=== PATIENT | male | born 1945 | race Two or more races ===

== ENCOUNTER 2021-01-19 12:34 | Emergency (ER) | payer OTHER ==
[~2021-01-19] VITALS: Ht 175.3 cm; Wt 97.5 kg
[2021-01-19] MEDS ORDERED: DIOVAN160 M1 PO (12:48)
[2021-01-19] MEDS ORDERED: PRAVASTATIN SOD40 MG PO (12:48)
[2021-01-19] MEDS ORDERED: NORVASC10 MG PO (12:49)
== END 2021-01-19 20:24 | disposition home or self-care (01) ==
LOC: ER 12:34 → EDBD 12:41 → CPU-OBS 12:41 → ER 12:41
DX: I16.1 Hypertensive emergency (principal); I10 Essential (primary) hypertension; E78.5 Hyperlipidemia, unspecified; R42 Dizziness and giddiness; R06.02 Shortness of breath; Z03.818 Encounter for observation for suspected exposure to other biological agents ruled out